=== PATIENT | male | born 1985 | race African-American/Black ===

== ENCOUNTER 2024-07-07 09:30 | Emergency (ER) | payer OTHER ==
[~2024-07-07] VITALS: Ht 182.9 cm; Wt 111.4 kg
[2024-07-07 09:43] VITALS: TEMP 98.7
[2024-07-07] MEDS ORDERED: Ketorolac 30 MG/ML VIAL IM ONE (10:15)
[2024-07-07 11:15] VITALS: BP 157/93; PULSE 73
== END 2024-07-07 11:15 | disposition home or self-care (01) ==
LOC: COL.ER 09:30
DX: S50.11XA Contusion of right forearm, initial encounter (principal); W22.8XXA Striking against or struck by other objects, initial encounter
CPT/HCPCS: J1885